=== PATIENT | female | born 1990 | race American Indian/Alaskan Native ===

== ENCOUNTER 2017-04-18 07:53 | Emergency (ER) | payer MEDICAID ==
[2017-04-18 08:27] LABS: Basophils % (Auto) 1.1 % (0.0-1.8); Eosinophils % (Auto) 2.7 % (0.0-4.3); Hematocrit 41.7 % (30.3-42.9); Hemoglobin 13.4 gm/dl (10.1-14.3); Mean Corpuscular HGB Conc 32 % (30-34); Mean Corpuscular Hemoglobin 29 pg (28-32); Mean Corpuscular Volume 92 fl (79-97); Platelet Count 252 K/mm3 (140-440); Red Blood Count 4.54 M/mm3 (3.65-5.03); White Blood Count 6.3 K/mm3 (4.5-11.0)
[2017-04-18 08:41] LABS: Alanine Aminotransferase 9 units/L (7-56); Albumin 4.5 g/dL (3.9-5); Albumin/Globulin Ratio 1.7 %; Alkaline Phosphatase 55 units/L (35-129); Anion Gap 17 mmol/L; BUN/Creatinine Ratio 9; Blood Urea Nitrogen 6 mg/dL (7-17); Calcium 9.3 mg/dL (8.4-10.2); Carbon Dioxide 24 mmol/L (22-30); Chloride 106.7 mmol/L (98-107); Glucose 94 mg/dL (65-100); Lipase 40 units/L (13-60); Sodium 144 mmol/L (137-145); Total Protein 7.2 g/dL (6.3-8.2)
[2017-04-18 09:15] LABS: Bacteria,Urine 1+ /HPF (Negative); Bilirubin,Urine NEG (Negative); Blood,Urine NEG (Negative); Ketones,Urine NEG (Negative); Leukocyte Esterase,Urine SM (Negative); Mucus,Urine 3+ /HPF; Nitrite,Urine NEG (Negative); Protein,Urine <15 mg/dL mg/dL (Negative)
--- NOTE | 2017-04-18 11:10 | Emergency Department Report ---
HPI - General Chief Complaint: Abdominal Pain Time Seen by Provider: 04/18/17 10:37 - HPI HPI: This is a 26 year-old female presents to the emergency department with a three-day history of some nausea, increased fatigue, decreased appetite and some dizziness. She denies any fever, headache, visual change, slurred speech, chest pain, shortness of breath, dysuria, vaginal bleeding or discharge. She has not taken anything for her symptoms prior to presentation. She denies any past medical history. She has not taken anything for her symptoms prior to presentation. No recent travel or sick contacts at home. She does not currently have a primary care physician. ED Past Medical Hx - Past Medical History Previous Medical History?: No - Surgical History Past Surgical History?: No - Social History Smoking Status: Never Smoker Substance Use Type: None - Medications Home Medications: Home Medications Medication Instructions Recorded Confirmed Last Taken Type Ondansetron [Zofran Odt] 4 mg PO Q8H PRN #10 tab.rapdis 04/18/17 Unknown Rx ED Review of Systems ROS: Stated complaint: VOMITING,DIZZY,WEAK Other details as noted in HPI Constitutional: denies: chills, fever Eyes: denies: eye pain, eye discharge, vision change ENT: denies: ear pain, throat pain Respiratory: denies: cough, shortness of breath, wheezing Cardiovascular: denies: chest pain, palpitations Endocrine: other (decreased appetitie, increased fatigue) Gastrointestinal: nausea. denies: abdominal pain Genitourinary: denies: urgency, dysuria, discharge Musculoskeletal: back pain. denies: joint swelling Skin: denies: rash, lesions Neurological: other (dizziness). denies: headache, numbness Physical Exam - Physical Exam Vital Signs: Vital Signs 04/18/17 07:55 Temperature 98.9 F Pulse Rate 90 Respiratory 18 Rate Blood Pressure 133/84 O2 Sat by Pulse 100 Oximetry Physical Exam: GENERAL: The patient is well-developed well-nourished. HENT: Normocephalic. Atraumatic. Patient has moist mucous membranes. No nystagmus. EYES: Extraocular motions are intact. Pupils equal reactive to light bilaterally. NECK: Supple. Trachea is midline. CHEST/LUNGS: Clear to auscultation. There is no respiratory distress noted. HEART/CARDIOVASCULAR: Regular. There is no tachycardia. There is no gallop rub or murmur. ABDOMEN: Abdomen is soft, nontender. Patient has normal bowel sounds. There is no abdominal distention. SKIN: There is no rash. There is no edema. There is no diaphoresis. NEURO: The patient is awake, alert, and oriented. The patient is cooperative. The patient has no focal neurologic deficits. The patient has normal speech. Cranial nerves II-12 grossly intact. No pronator drift. MUSCULOSKELETAL: There is no tenderness or deformity. There is no limitation range of motion. There is no evidence of acute injury. ED Course Vital Signs 04/18/17 07:55 Temperature 98.9 F Pulse Rate 90 Respiratory 18 Rate Blood Pressure 133/84 O2 Sat by Pulse 100 Oximetry ED Medical Decision Making - Lab Data Result diagrams: 04/18/17 08:05 04/18/17 08:05 - EKG Data -: EKG Interpreted by [facility] EKG shows normal: sinus rhythm, axis, intervals, QRS complexes (early repolarization), ST-T waves Rate: bradycardia (55 bpm) - EKG Data When compared to previous EKG there are: previous EKG unavailable Interpretation: other (sinus bradycardia at 55 bpm, normal axis, there is some early repolarization) - Medical Decision Making This patient presented with some generalized fatigue, nausea and vomiting, generalized dizziness. She does not have any focal, motor or sensory deficits in her cranial nerves are intact. EKG did not show any signs of ST elevation [place] or dysrhythmia. Labs are unremarkable including no signs of infection, ER abnormalities, renal insufficiency, glucose abnormalities and she has normal thyroid function. She does not have any deficits and her complaints are mostly generalized, did not feel that she required a CT imaging of the head at this time. She was given a prescription for antiemetics and referrals for primary care. She was encouraged to return to the emergency Department with any worsening of her symptoms or any acute distress. - Differential Diagnosis thyroid dysfunction, , hypoglycemia, dysrhythmia Critical Care Time: No Critical care attestation.: If time is entered above; I have spent that time in minutes in the direct care of this critically ill patient, excluding procedure time. ED Disposition Clinical Impression: Dizziness, Decreased appetite Nausea & vomiting Qualifiers: Vomiting type: unspecified Vomiting Intractability: non-intractable Qualified Code(s): R11.2 - Nausea with vomiting, unspecified Fatigue Qualifiers: Fatigue type: unspecified Qualified Code(s): R53.83 - Other fatigue Disposition: TO HOME OR SELFCARE Is pt being admited?: No Condition: Stable Instructions: Acute Nausea and Vomiting (ED), Weakness (ED), Dizziness (ED), Fatigue (ED) Additional Instructions: Please follow up with a primary care physician in the next few days. Return to the emergency Department with any worsening of your symptoms or any acute distress. Prescriptions: Ondansetron [Zofran Odt] 4 mg PO Q8H PRN #10 tab.rapdis PRN Reason: Nausea Referrals: PRIMARY CAREMD [Primary Care Provider] - 3-5 Days LIBBY BUSTAMANTE MD [Staff Physician] - 3-5 Days [facility] [Outside] - 3-5 Days Time of Disposition: 12:21
[2017-04-18 12:31] VITALS: BP 117/88
== END 2017-04-18 12:31 | disposition home or self-care (01) ==
LOC: ED 07:53
DX: R11.2 Nausea with vomiting, unspecified (principal); R42 Dizziness and giddiness; R53.83 Other fatigue; R63.0 Anorexia
CPT/HCPCS: 36415; 80053; 81001; 81025; 83690; 84443; 85025; 87400; 93005; 93010; 99283

== ENCOUNTER 2017-09-23 04:21 | Emergency (ER) | payer MEDICAID ==
[2017-09-23 05:26] VITALS: BP 91/50
[2017-09-23 06:23] LABS: Basophils # (Auto) 0.1 K/mm3 (0.0-0.1); Basophils % (Auto) 0.5 % (0.0-1.8); Eosinophils # (Auto) 0.3 K/mm3 (0.0-0.4); Eosinophils % (Auto) 2.5 % (0.0-4.3); Hemoglobin 12.4 gm/dl (10.1-14.3); Lymphocytes # (Auto) 2.9 K/mm3 (1.2-5.4); Lymphocytes % (Auto) 23.4 % (13.4-35.0); Mean Corpuscular HGB Conc 34 % (30-34); Mean Corpuscular Hemoglobin 31 pg (28-32); Mean Corpuscular Volume 89 fl (79-97); Monocytes # (Auto) 1.1 K/mm3 (0.0-0.8); Monocytes % (Auto) 8.9 % (0.0-7.3); Platelet Count 209 K/mm3 (140-440); Red Blood Count 4.05 M/mm3 (3.65-5.03); Red Cell Distribution Width 13.4 % (13.2-15.2)
[2017-09-23 06:40] LABS: Bilirubin,Urine NEG (Negative); Blood,Urine NEG (Negative); Calcium Oxalate Crystals,Urine 3+; Color,Urine Yellow (Yellow); Mucus,Urine 2+ /HPF; Protein,Urine <15 mg/dL mg/dL (Negative)
[2017-09-23 07:01] LABS: Alanine Aminotransferase 9 units/L (7-56); Albumin 4.3 g/dL (3.9-5); BUN/Creatinine Ratio 10; Blood Urea Nitrogen 7 mg/dL (7-17); Calcium 9.3 mg/dL (8.4-10.2); Hemolysis Index 2
--- NOTE | 2017-09-23 10:01 | Emergency Department Report ---
HPI - General Chief Complaint: Abdominal Pain - HPI HPI: 26-year-old [place] female coming in with suprapubic discomfort. She states that her pain is accompanied by nausea, but no vomiting or diarrhea. Patient has not taking any medication at home for his symptoms. She denies any exacerbating factors. She denies any alleviating factors. She denies any recent travel, or unusual foods. She denies any sick contacts. MD Complaint: abdominal pain -: Gradual Location: Suprapubic Radiation: none Migration to: no migration Severity scale (0 -10): 4 Quality: sharp Improves With: nothing Associated Symptoms: nausea, chills ED Past Medical Hx - Past Medical History Previous Medical History?: No Hx Hypertension: No Hx CVA: No - Surgical History Past Surgical History?: No - Social History Smoking Status: Never Smoker Substance Use Type: None - Medications Home Medications: Home Medications Medication Instructions Recorded Confirmed Last Taken Type Cephalexin [Keflex] 500 mg PO Q12HR #14 cap 09/23/17 Unknown Rx Dicyclomine [Bentyl] 10 mg PO QID #20 capsule 09/23/17 Unknown Rx Ondansetron [Zofran Odt] 4 mg PO Q8H PRN #10 tab.rapdis 09/23/17 Unknown Rx ED Review of Systems ROS: Stated complaint: STOMACH,BACK,PELVIC PAIN Other details as noted in HPI Comment: All other systems reviewed and negative Gastrointestinal: abdominal pain, nausea Musculoskeletal: denies: back pain Physical Exam - Physical Exam Vital Signs: Vital Signs 09/23/17 05:20 Temperature 98.7 F Pulse Rate 77 Respiratory 18 Rate Blood Pressure 91/50 O2 Sat by Pulse 98 Oximetry Physical Exam: PE:- Physical Exam Physical Exam: - General Limitations: No Limitations General appearance: alert, in no apparent distress. - Head Head exam: Present: atraumatic, normocephalic - Eye Eye exam: Present: normal appearance - ENT ENT exam: Present: mucous membranes moist - Neck Neck exam: Present: normal inspection - Respiratory Respiratory exam: Present: normal lung sounds bilaterally. Absent: respiratory distress - Cardiovascular Cardiovascular Exam: Present: normal rhythm. Absent: systolic murmur, diastolic murmur, rubs, gallop - GI/Abdominal GI/Abdominal exam: Present: soft, normal bowel sounds - Extremities Exam Extremities exam: Present: normal inspection - Back Exam Back exam: Present: normal inspection - Neurological Exam Neurological exam: Present: alert, oriented X3 - Psychiatric Psychiatric exam: normal affect and mood - Skin Skin exam: Present: warm, dry, intact, normal color. Absent: rash ED Course Vital Signs 09/23/17 05:20 Temperature 98.7 F Pulse Rate 77 Respiratory 18 Rate Blood Pressure 91/50 O2 Sat by Pulse 98 Oximetry ED Medical Decision Making - Lab Data Result diagrams: 09/23/17 05:53 09/23/17 05:53 Critical care attestation.: If time is entered above; I have spent that time in minutes in the direct care of this critically ill patient, excluding procedure time. ED Disposition Clinical Impression: Abdominal pain UTI (urinary tract infection) Qualifiers: Urinary tract infection type: acute cystitis Hematuria presence: without hematuria Qualified Code(s): N30.00 - Acute cystitis without hematuria Disposition: - TO HOME OR SELFCARE Is pt being admited?: No Does the pt Need Aspirin: No Condition: Stable Instructions: Urinary Tract Infection in Women (ED), Abdominal Pain (ED) Prescriptions: Cephalexin [Keflex] 500 mg PO Q12HR #14 cap Dicyclomine [Bentyl] 10 mg PO QID #20 capsule Ondansetron [Zofran Odt] 4 mg PO Q8H PRN #10 tab.rapdis PRN Reason: Nausea Referrals: PRIMARY CARE, [Primary Care Provider] - 3-5 Days
[2017-09-23] MEDS ORDERED: NACL 0.9% 1000 ML 1,000 ML IV ONE (10:10)
== END 2017-09-23 11:25 | disposition home or self-care (01) ==
LOC: ED 04:21
DX: N30.00 Acute cystitis without hematuria (principal)
CPT/HCPCS: 36415; 80053; 81001; 84702; 85025; 99283; J7030